=== PATIENT | female | born 1995 | race Caucasian/White ===

== ENCOUNTER 2024-06-12 13:19 | Outpatient (CLI) | payer OTHER, SELFPAY ==
--- OUTSIDE RECORDS SUMMARY | 2024-06-12 13:23 | XMS_ITS | Encounter Summary ---
Author Organization [facility] Address [address] [address] Care Team Providers Care Hospital Social Worker Name Role Phone Unavailable Primary Care Provider Unavailabl e Reason for Visit * Reason Comments Pharyngitis Encounter Details Date Type Department Care Team (Late st Contact Info) Description 05/03/2024 10:00 AM CDT Office Visit [place] [address] [facility] [address] [place] [address] Catrachito Rizvi PA-C [address] [facility] [place] [address] Sore throat Social History Tobacco Use Types Packs/Day Years Used Date Smoking Tobacco: Never Assessed Sex and Gender Information Value Date Recorded Sex Assigned at Not on file Gender Identity Not on file Sexual Orientation Not on file documented as of this encounter Last Filed Vital Signs Vital Sign Reading Time Taken Comments Blood Pressure 106/66 05/03/2024 9:24 AM CDT Pulse 109 05/03/2024 9:24 AM CDT Temperature 36.9 ??C (98.4 ??F) 05/03/2024 9:24 AM CD T Respiratory Rate 18 05/03/2024 9:24 AM CDT Oxygen Saturation 100% 05/03/2024 9:24 AM CDT Inhaled Oxygen Concentration - - Weight - - Height - - Body Mass Index - - documented in this encounter Progress Notes * Catrachito Rizvi PA-C - 05/03/2024 10:00 AM CDT Kaitlyn Erwin is a 28 y.o.female presents to the Urgent Care for Pharyngitis Symptoms began: 4 day(s) ago and are are worsening. Fever: absent. Associated symptoms: decreased appetite, ear pain. Fluid intake is good. Exposure: no at no exposure . OTC remedies: none. Relief of symptoms: no. Patient requests an excuse letter for work/school: No Patient presents to urgent care with a four-day history of sore throat. She also complains of ear pain. She denies fever. Remainder of review of systems is negative. Past Medical History: There is no problem list on file for this patient. Adverse Drug Reactions: Sulfa antibiotics and Azithromycin Medications: budesonide and norgestimate-eth estradiol Family History: No family history on file. Social History: Social History Tobacco Use Smoking status: Not on file Smokeless tobacco: Not on file Substance Use Topics Alcohol use: Not on file Drug use: Not on file Review of Systems: All systems were reviewed and found to be negative except as noted above. OBJECTIVE: General: NAD Skin: Mucous membranes are moist, no sign of dehydration. Head: Normocephalic. Eyes: PERRLA, full EOM. External exams normal. Ears: Normal pinnae, canals. TM's:[normal] Nose: Patent, without deformity. Throat: Moist mucous membranes. Oropharynx shows bilateral tonsillar enlargement with erythema. No evidence of tonsillar abscess. Respiratory: Normal respiratory effort. Lungs are clear with good breath sounds. Heart: RR without murmurs, rubs, or gallops. Vital Signs: BP 106/66 (BP Location: Right Arm, BP Cuff Size: Regular - Long) Pulse (!) 109 Temp 36.9 ??C (98.4 ??F) (Oral) Resp 18 SpO2 100% Orders Placed This Encounter STREP GROUP A, Molecular Detection-Collect Now in current encounter Labs: Results for orders placed or performed in visit on 05/03/24 STREP GROUP A, Molecular Detection-Collect Now in current encounter Result Value Ref Range Group A Strep Detected (A) Not Detected ASSESSMENT: 1. Sore throat Medical Decision Makin-year-old female presenting with a four-day history of sore throat. Differential diagnosis includes COVID, strep pharyngitis, tonsillitis, tonsillar abscess and viral pharyngitis. A strep was obtained which was positive. Patient was placed on Pen-VK to be taken as directed. She should return to urgent care with any ongoing or worsening of her symptoms. PLAN: Orders Placed This Encounter STREP GROUP A, Molecular Detection-Collect Now in current encounter penicillin V potassium (PEN VK) 500 MG tablet There are no Patient Instructions on file for this visit. Orders Placed This Encounter Medications budesonide (PULMICORT) 0.5 MG/2ML inhalation suspension Sig: SMARTSIG:Via Nebulizer TERI 0.25-35 MG-MCG tablet Sig: Take 1 Tablet by mouth daily. RTC p.r.n. Total visit time was 25 minutes. documented in this encounter Nursing Notes * Richard Chiu LPN - 05/03/2024 10:00 AM CDT Kaitlyn Erwin is a 28 y.o.female presents to the Urgent Care for Pharyngitis Symptoms began: 4 day(s) ago and are are worsening. Fever: absent. Associated symptoms: decreased appetite, ear pain. Fluid intake is good. Exposure: no at no exposure . OTC remedies: none. Relief of symptoms: no. Patient requests an excuse letter for work/school: No documented in this encounter Plan of Treatment Not on file documented as of this encounter Procedures Procedure Name Priority Date/Time Associated Diagnosis Comments STREP GROUP A, MOLECULAR DETECTION STAT 05/03/2024 9:20 AM CDT Sore throat documented in this encounter Results * (ABNORMAL) STREP GROUP A, Molecular Detection-Collect Now in current encounter (05/03/2024 9:20 AM CDT) Group A Strep Detected( A) Not Detected 05/03/2024 9:55 AM CDT [facility] Comment:Methodology: Qualita tive real-time PCR assay Swab (Source Required) THROAT SWAB / Unknown Non-blood Collection / Unknown 05/03/2024 9:20 AM CDT 05/03/2024 9:30 AM CDT [facility] [address] [place] [address], [facility] documented in this encounter Visit Diagnoses Diagnosis Sore throat Acute pharyngitis documented in this encounter
--- OUTSIDE RECORDS SUMMARY | 2024-06-12 13:23 | XMS_ITS | Clinical Summary ---
Author Organization [email or web address] [facility] Address [place], [place] [address] Care Team Providers Care Margin Analyst Name Role Phone Eunice Ibarra MD Primary Care Provider [phone] Allergies Active Allergy Reactions Criticality Noted Date Comments Sulfamethoxazole-Trimethopri m Rash,Edema 03/09/2021 Erythromycin Edema 02/24/2021 Ophthalmic ointment. Swelling. Immunizations Name Administration Dates Next Due COVID-19 vaccine (Moderna 100mcg/0.5mL) GATITO GOOD 12/22/2020,11/24/2020 Social History Tobacco Use Types Packs/Day Years Used Date Smoking Tobacco: Never Assessed Social Connections Answer Date Recorded Frequency of Communication with Friends and Fami ly Not on file 09/19/2021 Financial Resource Strain Answer Date R ecorded Difficulty of Paying Living Expenses Not on file 09/19/2021 Difficulty of Paying Living Expenses Not on file 09/19/2021 Sex and Gender Information Value Date Recorded Sex Assigned at Not on file Gender Identity Not on file Sexual Orientation Not on file Last Filed Vital Signs Vital Sign Reading Time Taken Comments Blood Pressure 115/75 02/24/2021 4:44 PM CDT Pulse 86 02/24/2021 4:44 PM CDT Temperature 36.6 ??C (97.8 ??F) 02/24/2021 4:44 PM CD T Respiratory Rate - - Oxygen Saturation - - Inhaled Oxygen Concentration - - Weight - - Height - - Body Mass Index - - Plan of Treatment Health Maintenance Due Date Last Done Comments Tdap 2004 Depression screening for age 12+ 2005 HIV for age 15-65 2008 BMI (ht and wt on same day) for age 18+ 11/30/2011 Hepatitis C screening for ag e 18-79 11/30/2011 Tetanus booster 2013 COVID-19 vaccine series (2023- season) 2024 12/22/2020, 11/24/2020 Influenza for age 9-49 05/20/2024 Pap test for age 21-65 03/31/2026 , 03/31/2023 Pneumococcal series for age 6-64 Aged Out No longer eligible b ased on patient's age to complete this topic Procedures Procedure Name Priority Date/Time Associated Diagnosis Comments HPV HIGH RISK Routine 03/31/2023 10:50 AM CDT from Last 3 Months or Most Recently Relevant to Health Maintenance Results * HPV HIGH RISK (03/31/2023 10:50 AM CDT) TYPE 16 Negative Negative 04/14/2023 1:50 PM CDT [facility] TYPE 18 Negative Negative 04/14/2023 1:50 PM CDT [facility] OTHER HIGH RISK TYPES Negative Negative 04/14/2023 1:50 PM CDT [facility] Other (Cervical/Vagina l) 03/31/2023 10:50 AM CDT 04/12/2023 4:33 PM CDT Narrative [facility] - 04/14/2023 1:50 PM CDT HPV types 16, 18, 31, 33, 35, 39, 45, 51, 52, 56, 58, 59, 66 and 68 DNA were undetectable or below the pre-set threshold. Methodology: [employer] Satya 4800 HPV Test Galina Ledbetter MD [facility] [address] [place] [address], [place] from Last 3 Months or Most Recently Relevant to Health Maintenance Care Teams Margin Analyst Relationship Specialty Start Date End Date Eunice Ibarra MD PCP - General 02/24/21
--- OUTSIDE RECORDS SUMMARY | 2024-06-12 13:23 | XMS_ITS | Clinical Summary ---
Author Organization [facility] Address [address] [address] Care Team Providers Care Electrotype Molder Name Role Phone Unavailable Primary Care Provider Unavailabl e Source Comments You are receiving this document as you are listed as the primary care provider,follow-up provider, or the patient has been referred to you for consultation.This is in compliance with the Medicare and[facility] EHR Incentive Program,which states Providers who transition their patient to another setting of careor provider of care or refers their patient to another provider of care shouldprovide summary care record for each transition of care or referral. [employer] Allergies Active Allergy Reactions Criticality Noted Date Comments Azithromycin Other, see comments 05/03/2024 Eye ointment Sulfa Antibiotics Hives High 05/03/2024 Medications Medication Sig Dispensed Refills Start Date End Date Status budesonide (PULMICORT) 0.5 MG/2ML inhalation suspension SMARTSIG:Via Nebulizer 05/01/2024 Active TERI 0.25-35 MG-MCG tablet Take 1 Tablet by mouth daily. 03/12/2024 Active penicillin V potassium (PEN VK) 500 MG tablet Take 1 Tablet (500 mg) by mouth two times a day for 10 days. 20 Tablet 05/03/2024 05/13/2024 Encounters Date Type Department Care Team Description 05/03/2024 10:00 AM CDT Office Visit [place] [address] [facility] [address] [place] [address] Catrachito Rizvi S, PAFinaC Sore throat from Last 3 Months Social History Tobacco Use Types Packs/Day Years [...] Health Maintenance Due Date Last Done Comments Cervical Cancer Screening Due 1993 Hep C Screening (Preventive Services) 1993 HIV Screening (Preventive Services) 2009 Adult Preventive Visit 11/30/2011 DTaP/Tdap/Td (1 - Tdap) 2012 HepB (1) 2012 COVID-19 Vaccine (3 - 2023-2 5 season) 2024 12/22/2020, 11/24/2020 Influenza (#1) 2024 Zoster/Shingles (1 of 2) 11/30/2043 HPV Vaccine Aged Out No longer eligi ble based on patient's age to complete this topic HepA Aged Out No longer eligi ble based on patient's age to complete this topic Hib Aged Out No longer eligi ble based on patient's age to complete this topic IPV (Polio) Aged Out No longer eligi ble based on patient's age to complete this topic MCV4 Aged Out No longer eligi ble based on patient's age to complete this topic Pneumococcal Aged Out No longer eligi ble based on patient's age to complete this topic Procedures Procedure Name Priority Date/Time Associated Diagnosis Comments STREP GROUP A, MOLECULAR DETECTION STAT 05/03/2024 9:20 AM CDT Sore throat from Last 3 Months Results * (ABNORMAL) STREP GROUP A, Molecular Detection-Collect Now in current encounter (05/03/2024 9:20 AM CDT) Group A Strep Detected( A) Not Detected 05/03/2024 9:55 AM CDT [facility] Comment:Methodology: Qualita tive real-time PCR assay Swab (Source Required) THROAT SWAB / Unknown Non-blood Collection / Unknown 05/03/2024 9:20 AM CDT 05/03/2024 9:30 AM CDT [facility] [address] [place] [address], [facility] from Last 3 Months
== END 2024-06-12 13:20 | disposition home or self-care (01) ==
PROVIDERS: Visit Provider Obstetrics & Gynecology
DX: E78.00 Pure hypercholesterolemia, unspecified (principal)
CPT/HCPCS: 80061

== ENCOUNTER 2024-07-23 09:22 | Outpatient (CLI) | payer OTHER, SELFPAY ==
--- OUTSIDE RECORDS SUMMARY | 2024-07-23 09:27 | XMS_ITS | Clinical Summary ---
Author Organization [facility] Address [address], [place] [address] Care Team Providers Care Epidemiology Investigator Name Role Phone Unavailable Primary Care Provider Unavailabl e Source Comments You are receiving this document as you are listed as the primary care provider,follow-up provider, or the patient has been referred to you for consultation.This is in compliance with the Medicare and[facility] Cent[facility]aid EHR Incentive Program,which states Providers who transition their patient to another setting of careor provider of care or refers their patient to another provider of care shouldprovide summary care record for each transition of care or referral. [employer] Allergies Active Allergy Reactions Criticality Noted Date Comments Azithromycin Other, see comments 05/03/2024 Eye ointment Sulfa Antibiotics Hives High 05/03/2024 Medications Medication Sig Dispensed Refills Start Date End Date Status budesonide (PULMICORT) 0.5 MG/2ML inhalation suspension SMARTSIG:Via Nebulizer 05/01/2024 Active TERI 0.25-35 MG-MCG tablet Take 1 Tablet by mouth daily. 03/12/2024 Active Encounters Date Type Department Care Team Description 05/03/2024 10:00 AM CDT Office Visit [place] [address] [facility] [address] [place] [address] Catrachito Rizvi S, PAFinaC Sore throat from [...] on patient's age to complete this topic Infant RSV Aged Out No longer eligi ble based [...] A) Not Detected 05/03/2024 9:55 AM CDT [facility] Comment:Methodology: Qualita tive real-time PCR assay Swab (Source Required) THROAT SWAB / Unknown Non-blood Collection / Unknown 05/03/2024 9:20 AM CDT 05/03/2024 9:30 AM CDT [facility] [address] [place] [address], [facility] from Last 3 Months
--- OUTSIDE RECORDS SUMMARY | 2024-07-23 09:27 | XMS_ITS | Clinical Summary ---
Author Organization [employer] [facility] Address [place], [place] [address] Care Team Providers Care Air Quality Specialist Name Role Phone Eunice Ibarra MD Primary Care Provider [phone] Allergies Active Allergy Reactions Criticality Noted Date [...] 16 Negative Negative 04/14/2023 1:50 PM CDT [facility] TYPE 18 Negative Negative 04/14/2023 1:50 PM CDT [facility] OTHER HIGH RISK TYPES Negative Negative 04/14/2023 1:50 PM CDT [facility] Other (Cervical/Vagina l) 03/31/2023 10:50 AM CDT 04/12/2023 4:33 PM CDT Narrative [facility] - 04/14/2023 1:50 PM CDT HPV types 16, 18, 31, 33, 35, 39, 45, 51, 52, 56, 58, 59, 66 and 68 DNA were undetectable or below the pre-set threshold. Methodology: [employer] Satya 4800 HPV Test Galina Ledbetter MD [facility] [address] [place] [address], [place] from Last 3 Months or Most Recently Relevant to Health Maintenance Care Teams Air Quality Specialist Relationship Specialty Start Date End Date Eunice Ibarra MD PCP - General 02/24/21
--- OUTSIDE RECORDS SUMMARY | 2024-07-23 09:27 | XMS_ITS | Encounter Summary ---
Author Organization [facility] Address [address] [place] [address] Care Team Providers Care It Support Engineer Name Role Phone Unavailable Primary Care Provider Unavailabl e Reason for Visit * Reason Comments Pharyngitis Encounter Details Date Type Department Care Team (Late st Contact Info) Description 05/03/2024 10:00 AM CDT Office Visit [place] [address] [facility] [address] [place] [address] Catrachito Rizvi PA-C [address] [place] [address] Sore throat Social History Tobacco Use Types [...] A) Not Detected 05/03/2024 9:55 AM CDT [facility] Comment:Methodology: Qualita tive real-time PCR assay Swab (Source Required) THROAT SWAB / Unknown Non-blood Collection / Unknown 05/03/2024 9:20 AM CDT 05/03/2024 9:30 AM CDT [facility] [address] [place] [address], [facility] documented in this encounter Visit Diagnoses Diagnosis Sore throat Acute pharyngitis documented in this encounter
== END 2024-07-23 09:23 | disposition home or self-care (01) ==
PROVIDERS: Visit Provider Obstetrics & Gynecology
DX: D50.9 Iron deficiency anemia, unspecified (principal); R63.6 Underweight; Z31.69 Encounter for other general counseling and advice on procreation
CPT/HCPCS: 84443; 86762; 86787